=== PATIENT | female | born 1980 | race Caucasian/White ===

== ENCOUNTER 2020-09-08 16:26 | Emergency (ER) | payer OTHER ==
[~2020-09-08 16:26] MED LIST: Iopamidol-370 76% 500 ML 1 ML ONE
[2020-09-08 16:58] LABS: #Eosinphils 0.1 thou/uL (0.0-0.7); #Lymphocytes 1.5 thou/uL (1.20-3.40); #Monocytes 0.5 thou/uL (0.11-0.59); %Eosinophils 1.3 % (0.0-10.0); %Lymphocytes 24.6 % (21.0-51.0); %Monocytes 8.1 % (0.0-10.0); Hemoglobin 9.1 g/dL (12.0-16.0); Mean Corpuscular HGB CONC 32.4 g/dL (32.0-36.0); Mean Corpuscular Hemoglobin 24.4 pg (27.0-31.0); Mean Corpuscular Volume 75.4 fL (78.0-98.0); Mean Platelet Volume 9.4 fL (7.4-10.4); Platelet Count 260 thou/uL (130-400); RBC Distribution Width 15.3 % (11.5-14.5); White Blood Cell (WBC) Count 6.1 thou/uL (4.8-10.8)
--- NOTE | 2020-09-08 16:59 | CT ---
Head CT without contrast 09/08/2020: Comparison: None HISTORY: Fell off a horse TECHNIQUE: Axial CT imaging at 5 mm intervals from vertex through skull base without contrast FINDINGS: There is mild mucosal thickening involving the right maxillary sinus. The imaged paranasal sinuses and mastoid air cells appear otherwise unremarkable. No displaced calvarial fracture. No intracranial hemorrhage, midline shift, mass effect, or ventricular enlargement. IMPRESSION: No intracranial hemorrhage or displaced calvarial fracture. Results called to Dr. Avalos at approximately 5:00 PM 09/08/2020
[2020-09-08 17:03] LABS: INR-International Normal Ratio 1.3; PTT 29.5 sec (22.9-36.1); Prothrombin Time 16.2 sec (12.0-14.7)
--- NOTE | 2020-09-08 17:03 | CT ---
CT cervical spine without contrast: 09/08/2020 COMPARISON: None available HISTORY: Fell off a horse, trauma, pain TECHNIQUE: Axial CT imaging at 2.5 mm intervals through the cervical spine without contrast. Coronal and sagittal reformatted imaging obtained. FINDINGS: The C1 ring appears intact. The craniocervical junction, atlantoaxial interspace, and cervicothoracic junction appear unremarkabl e. The visualized lung apices are unremarkable. There is disc space narrowing with degenerative endplate change and a posterior disc osteophyte compl ex at the C5-6 level. The occipital condyles, the dens, and the C1-2 articulation appear within normal limits. There is left-sided uncovertebral osteophyte formation at the C5-6 level. IMPRESSION:Degenerative change. No acute fracture or evidence of dislocation within the cervical spin e. Results called to Dr. Avalos at 5:00 PM 09/08/2020.
[2020-09-08 17:11] LABS: BHCG - Serum Negative (NEGATIVE); Pregs Control Background? CLEAR/WHITE (CLR/WHITE); Pregs Control Bar Appear? YES (CONTROL BAR)
--- NOTE | 2020-09-08 17:16 | CT ---
CT of the chest, abdomen, pelvis, thoracic spine, and lumbar spine: 09/08/2020 COMPARISON: None HISTORY: Fall from a horse TECHNIQUE: Axial CT imaging at 5 mm intervals from the thoracic inlet through the pubic symphysis wit h IV contrast. Coronal and sagittal reformatted imaging obtained. FINDINGS: Bilateral breast implants are present. No axillary, hilar, or mediastinal lymphadenopathy. No significant pleural, pericardial, or mediastin al fluid. There is a gastric suture line present. The vascular structures of the chest appear patent. There no pneumothorax is seen. Mild increased linear density noted within the posterior aspec t of the lung bases, likely on the basis of atelectasis. No endobronchial lesion. Osseous structures of the chest demonstrate no acute findings. No free intraperitoneal air or fluid is seen. Liver, gallbladder, spleen, pancreas, adrenal glands, and kidneys unremarkable. The uterus is lobulated and enlarged and demonstrates areas of increased density which could signify fibroid disease. There is a 1.9 cm round hypodensity in the region of the right ovary suggesting a small cyst or prominent follicle. Limited assessment of the bowel demonstrates no acute findings. Vascular structures of the abdomen/pe lvis appear patent. No abdominal or pelvic lymphadenopathy is seen. Osseous structures of the abdomen/pelvis demonstrate no acute findings. No acute fracture or dislocation is seen within the thoracic or lumbar spine. The sternum and manubri um appear intact. No thoracic or lumbar spine anterolisthesis or retrolisthesis. IMPRESSION: No acute findings. Multiple incidental findings as above. Results called to Dr. Avalos at 5:10 PM 09/08/2020
[2020-09-08 17:19] LABS: ALT (SGPT) 13 U/L (8-55); AST (SGOT) 16 U/L (5-34); Albumin 3.9 g/dL (3.5-5.0); Alkaline Phosphatase 60 U/L (40-110); Anion Gap 14 mmol/L (10-20); BUN (Urea Nitrogen) 13 mg/dL (7.0-18.7); Bilirubin, Total 0.3 mg/dL (0.2-1.2); Calc. Creatinine Clearance 0 mL/min (70-130); Calcium 8.8 mg/dL (7.8-10.44); Carbon Dioxide 20 mmol/L (22-29); Chloride 112 mmol/L (98-107); Estimated GFR-MDRD 80; Globulin 2.8 g/dL (2.4-3.5); Glucose 95 mg/dL (70-105); Potassium 3.8 mmol/L (3.5-5.1); Protein, Total 6.7 g/dL (6.0-8.3); Sodium 142 mmol/L (136-145)
--- NOTE | 2020-09-08 17:42 | RAD ---
EXAM: LEFT FOREARM TWO VIEWS: 09/08/20 HISTORY: Injury, pain. FINDINGS: No fracture, dislocation, or other acute process. IMPRESSION: Unremarkable left forearm. POS: RRE
--- NOTE | 2020-09-08 17:43 | RAD ---
EXAM: LEFT TIBIA AND FIBULA TWO VIEWS: 09/08/20 HISTORY: Injury from trauma, fall. FINDINGS/IMPRESSION: Evidence of prior ACL repair. No fracture, dislocation, or other acute process. POS: RRE
--- NOTE | 2020-09-08 17:44 | RAD ---
EXAM: LEFT FEMUR TWO VIEWS: 09/08/20 HISTORY: Injury, fall. FINDINGS/IMPRESSION: No fracture, dislocation, or other acute process. Evidence of prior ACL repair. POS: RRE
--- NOTE | 2020-09-08 17:45 | RAD ---
EXAM: LEFT HUMERUS TWO VIEWS: 09/08/20 HISTORY: Injury, fall. FINDINGS/IMPRESSION: No fracture, dislocation, or other significant acute osseous process. POS: RRE
--- NOTE | 2020-09-08 18:34 | RAD ---
EXAM: RIGHT KNEE FOUR VIEWS: 09/08/20 HISTORY: Right knee pain following an injury. Hip pain. FINDINGS/IMPRESSION: No fracture, dislocation, or other significant acute osseous process. POS: RRE
== END 2020-09-08 18:35 | disposition home or self-care (01) ==
LOC: ERS 16:26
DX: S80.211A Abrasion, right knee, initial encounter (principal); M54.6 Pain in thoracic spine; M54.5 Low back pain; F43.10 Post-traumatic stress disorder, unspecified; F41.9 Anxiety disorder, unspecified; V80.010A Animal-rider injured by fall from or being thrown from horse in noncollision accident, initial encounter
CPT/HCPCS: 70450; 71260; 72125; 74177; 80053; 84703; 85025; 85610; 85730; 93005; G0390; Q9967